=== PATIENT | male | born 1965 | race Caucasian/White ===

== ENCOUNTER 2017-04-04 09:43 | Emergency (ER) | payer OTHER ==
[~2017-04-04] VITALS: Ht 182.9 cm; Wt 90.7 kg
[~2017-04-04 09:43] MED LIST: ANTIVERT 25MG #1 PAC PO; FOLIC ACID 1 MG PO; LEADER NIC14 MG/24 H TOP; MULTIVITAMIN1 TAB PO; NORVASC5 M1 PO; VALIUM2 MG PO; VITAMIN B1100 MG PO; ZOFRAN4 M2 PO
--- NOTE | 2017-04-04 10:43 | ED PSYCHIATRIC COMPLAINT ---
History of Present Illness General Chief Complaint: ETOH/Drug Related Complaint Stated Complaint: DETOX Source: patient Exam Limitations: no limitations Vital Signs & Intake/Output Vital Signs & Intake/Output Vital Signs Date Time Temp Pulse Resp B/P B/P Pulse O2 O2 Flow FiO2 Mean Ox Delivery Rate 04/04 1735 96.7 90 18 122/89 / 1730 96.7 90 18 122/89 96 Room Air 04/04 1623 97.7 90 18 104/76 94 Room Air 04/04 1403 97.6 88 18 124/76 06 1158 96.6 93 18 155/81 04/04 0948 98.0 69 18 124/74 99 Room Air Allergies Coded Allergies: NO KNOWN ALLERGIES (04/20/15) Reconcile Medications Amlodipine Besylate (Norvasc) 5 MG TABLET 1 TAB PO DAILY htn Lorazepam (Ativan) 1 MG TABLET 1 TAB PO TID PRN ALCHOHOL WITHDRAWAL TODAY/TOMORROW: 1 TAB EVERY 6 HOURS DAY 3: 1 EVERY 8 HOURS DAY 4: 1 EVERY 12 HOURS DAY 5: 1 TAB Triage Note: PT TO ED FOR ETOH DETOX, REPORTING LAST DRINK WAS 1/2 PINT OF WHISKEY AT APPROX 8 AM, ENDRORSES DRINKING 1-1.5 PINTS OF CALLY DAILY FOR "ALL MY LIFE" DENIES HX OF DETOX SEIZURES. PT APPEAR INTOXICATED IN TRIAGE. Triage Nurses Notes Reviewed? yes HPI: Patient presents for evaluation of alcoholism. Patient states "I am drunk" with his last alcohol consumption being 7:30 this morning consisting of 3 beers and a pint of whiskey. He states he drinks about 6 beers and 1-1-1/2 pints daily and has been "drinking all" his life. He had one prior detox 2 years ago at different hospital. he denies a history of seizures. Past History Travel History Traveled to [place] past 21 day No Medical History Any Pertinent Medical History? 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 No Review of Systems Review of Systems Constitutional: Reports: no symptoms. EENTM: Reports: no symptoms. Respiratory: Reports: no symptoms. Cardiovascular: Reports: no symptoms. GI: Reports: no symptoms. Genitourinary: Reports: no symptoms. Musculoskeletal: Reports: no symptoms. Skin: Reports: no symptoms. Neurological/Psychological: Reports: no symptoms. Hematologic/Endocrine: Reports: no symptoms. Immunologic/Allergic: Reports: no symptoms. All Other Systems: Reviewed and Negative Physical Exam Physical Exam General Appearance: SEE BELOW Neurological/Psychiatric: SEE BELOW Comments: General: Alert, calm, cooperative, mild EtOH-like odor Head: Normocephalic, atraumatic Eyes: Normal inspection, extinguishing nystagmus with lateral gaze, EOMI Ears: Normal inspection Nose: Normal inspection Throat: Moist mucosa Neck: Supple, no goiter Heart: Regular rate and rhythm, no murmurs rubs or gallops Lungs: Clear to auscultation bilaterally with good air entry Abdomen: Soft nontender nondistended, normal bowel sounds Chest: Nontender Extremities: Normal range of motion grossly, no tremors present, no cyanosis clubbing or edema of the upper extremities Neurologic: cranial nerves II through XII grossly intact, speech clear, gait normal Psychiatric: No apparent delusions or hallucinations, no pressured speech or thought blocking SAD PERSONS Done? patient not suicidal Progress Differential Diagnosis: drug intoxication, drug overdose, drug withdrawal Plan of Care: Orders Procedure Date/time Status Add-on Test (ER Only) 04/04 1232 Active LIPASE 04/04 1109 Complete CIWA 04/04 1048 Active Add-on Test (ER Only) 04/04 1046 Active URINE DRUG SCREEN FOR ER ONLY 04/04 1021 Complete MAGNESIUM 04/04 1021 Complete LITHIUM 04/04 1021 Complete ETHANOL 04/04 1021 Complete COMPREHENSIVE METABOLIC PANEL 04/04 1021 Complete CBC WITHOUT DIFFERENTIAL 04/04 1021 Complete Laboratory Tests 04/04/17 1109: [place] < 0.2 L, Serum Alcohol 251.0 04/04/17 1109: Anion Gap 12, Estimated GFR > 60, BUN/Creatinine Ratio 17.1, Glucose 331 H, Calcium 8.5, Magnesium 1.7, Total Bilirubin 1.1, AST 76 H, ALT 151 H, Alkaline Phosphatase 184 H, Total Protein 6.7, Albumin 3.7, Globulin 3.0, Albumin/ Globulin Ratio 1.2, Lipase 133, CBC w Diff NO MAN DIFF REQ, RBC 4.16 L, MCV 101.8 H, MCH 34.6 H, RDW 13.3, MPV 9.1, Gran % 59.4, Lymphocytes % 30.6, Monocytes % 8.6, Eosinophils % 0.9, Basophils % 0.5, Absolute Granulocytes 5.4, Absolute Lymphocytes 2.8, Absolute Monocytes 0.8 H, Absolute Eosinophils 0.1, Absolute Basophils 0, PUBS MCHC 34.0, Urine Opiates Screen < 100.00, Methadone Screen < 40, Barbiturate Screen < 60, Ur Phencyclidine Scrn < 6.00, Amphetamines Screen < 100, U Benzodiazepines Scrn < 85, Urine Cocaine Screen < 50, Urine Cannabis Screen < 5.00 Comments: 04/04/2017 6:16:11 PM patient appears comfortable with low CIWA scores. He is still somewhat intoxicated and cannot be formally evaluated for inpatient detox for another 2 hours or so. I've explained this to the patient and he is respectfully declined further emergency Department treatment. His on we'll be giving him a ride home and he will seek outpatient detox and counseling. Clinically this patient appears sober and capable of informed medical decision making. Departure Departure Disposition: HOME OR SELF CARE Condition: Stable Clinical Impression Primary Impression: Alcohol intoxication Qualifiers: Complication of substance-induced condition: uncomplicated Qualified Code: F10.920 - Alcohol use, unspecified with intoxication, uncomplicated Secondary Impressions: Alcoholic hepatitis Qualifiers: Ascites presence: without ascites Qualified Code: K70.10 - Alcoholic hepatitis without ascites Referrals: CALIXTO SARMIENTO,FIDELINA (PCP/Family) Additional Instructions: Ativan as prescribed if you remain abstinent from alcohol. Otherwise wean your alcohol use and seek an outpatient detox program as soon as possible. Your primary care doctor of this emergency department visit and treatment plan. Of note, you have elevations in your liver enzymes studies consistent with alcoholic hepatitis. If you've refrain from alcohol intake this will resolve on its own. Return if any concerns or sudden worsening. How to take the Ativan: you will take one tablet every 6 hours for the remainder of today and tomorrow. On third day you will take one tablet every 8 hours, on the fourth day you'll take one tablet every 12 hours and on the final day 1 tablets only. Departure Forms: Customer Survey General Discharge Information Prescriptions: Current Visit Scripts Lorazepam (Ativan) 1 TAB PO TID PRN ALCHOHOL WITHDRAWAL #12 TAB TODAY/TOMORROW: 1 TAB EVERY 6 HOURS DAY 3: 1 EVERY 8 HOURS DAY 4: 1 EVERY 12 HOURS DAY 5: 1 TAB
[2017-04-04 11:18] LABS: ABSOLUTE BASOPHIL COUNT 0 /CUMM (0.0-0.2); ABSOLUTE EOSINOPHIL COUNT 0.1 /CUMM (0.0-0.7); ABSOLUTE GRANULOCYTE CT 5.4 /CUMM (1.4-6.5); ABSOLUTE LYMPH COUNT 2.8 /CUMM (1.2-3.4); ABSOLUTE MONOCYTE COUNT 0.8 /CUMM (0.10-0.60); BASOPHIL % 0.5 % (0.0-2.0); EOSINOPHIL % 0.9 % (0-5); GRANULOCYTE % 59.4 % (42.2-75.2); HEMATOCRIT 42.4 % (42-52); MEAN CORPUSCULAR HGB 34.6 PG (27.0-31.0); MEAN CORPUSCULAR VOLUME 101.8 FL (80.0-94.0); MEAN PLATELET VOLUME 9.1 FL (7.4-10.4); PLATELET COUNT 215 /CUMM (130-400); RBC DISTRIBUTION WIDTH 13.3 % (11.5-14.5); RED BLOOD CELL CT 4.16 /CUMM (4.70-6.10); WHITE BLOOD CELL COUNT 9.1 /CUMM (4.8-10.8)
[2017-04-04 11:51] LABS: LITHIUM < 0.2 mmol/L (0.6-1.2)
[2017-04-04] MEDS ORDERED: ATIVAN1 M1 PO (18:22)
[2017-04-04 18:58] VITALS: BP 135/95
== END 2017-04-04 19:00 ==
LOC: ERH 09:43
PROVIDERS: Emergency Medicine
DX: F10.129 Alcohol abuse with intoxication, unspecified (principal); K70.10 Alcoholic hepatitis without ascites
CPT/HCPCS: 80307; G0480

== ENCOUNTER 2018-03-13 10:26 | Inpatient (IN) | payer OTHER ==
[~2018-03-13] VITALS: Ht 182.9 cm; Wt 108.1 kg
[~2018-03-13 10:26] MED LIST changes: +ATIVAN1 M1 PO; +METFORMIN HCL500 M3 PO
[2018-03-13 11:03] LABS: ABSOLUTE BASOPHIL COUNT 0.1 /CUMM (0.0-0.2); ABSOLUTE EOSINOPHIL COUNT 0.3 /CUMM (0.0-0.7); ABSOLUTE GRANULOCYTE CT 3.6 /CUMM (1.4-6.5); ABSOLUTE LYMPH COUNT 3.3 /CUMM (1.2-3.4); ABSOLUTE MONOCYTE COUNT 0.8 /CUMM (0.10-0.60); BASOPHIL % 0.7 % (0.0-2.0); EOSINOPHIL % 3.4 % (0-5); GRANULOCYTE % 44.9 % (42.2-75.2); MEAN CORPUSCULAR HGB 34.3 PG (27.0-31.0); MEAN CORPUSCULAR HGB CONC 33.3 G/DL (33.0-37.0); MEAN PLATELET VOLUME 8.3 FL (7.4-10.4); PLATELET COUNT 383 /CUMM (130-400); RBC DISTRIBUTION WIDTH 14.1 % (11.5-14.5); RED BLOOD CELL CT 4.47 /CUMM (4.70-6.10); WHITE BLOOD CELL COUNT 8.1 /CUMM (4.8-10.8)
--- NOTE | 2018-03-13 11:09 | ED PSYCHIATRIC COMPLAINT ---
History of Present Illness General Chief Complaint: Psychiatric Related Complaint Stated Complaint: BIBA +SI Source: patient Exam Limitations: poor historian Allergies Coded Allergies: NO KNOWN ALLERGIES (04/20/15) Triage Note: JUAQUIN ON PEER AFTER TEXTING HIS DAUGHTER THAT HE WANTED TO HARM HIMSELF. SHE CALLED 911, AND ON ARRIVAL OF PD AND EMS THEY FOUND A LADDER LEANING AGAINST THE RAFTERS AND PT ADMITTED TO LOOKING FOR A ROPE. DENIES SIGNIFICANT ILLICIT DRUG USE, HX ETOH. ARRIVES CALM, COOPERATIVE AND OPEN TO HELP Triage Nurses Notes Reviewed? yes Onset: Abrupt Duration: unknown duration Timing: recent history HPI: 53-year-old male was brought into the emergency room by police to us ambulance after making suicidal comments to his daughter. Patient was reportedly found with a ladder next to the garage and he was actively looking for a rope to hang himself. He reports that he's been increasingly depressed and is currently in financial debt. He reports that he has and insurance policy and is worth more tender than alive. He does not want to live. He reports that he just wants to leave here so he get about his business he denies any alcohol or drug use. He lives with his aunt. (Soham SLATER,Saeed) Reconcile Medications Atorvastatin Calcium 10 MG TABLET 1 TAB PO DAILY CHOLESTEROL (Reported) Lisinopril 5 MG TABLET 1 TAB PO DAILY HEART (Reported) Metformin HCl 500 MG TABLET 2 TAB PO BID DIABETES (Reported) (Melba SARMIENTO,Elio Mccann) Vital Signs & Intake/Output Vital Signs & Intake/Output Vital Signs Date Time Temp Pulse Resp B/P B/P Pulse O2 O2 Flow FiO2 Mean Ox Delivery Rate 03/15 1552 91 140/93 03/15 1550 91 140/93 03/15 1230 90 141/97 03/15 1158 90 141/97 03/15 0851 84 139/98 03/15 0751 84 139/98 03/15 0750 96.8 84 139/98 03/14 2159 86 154/98 03/14 2013 97.8 98 143/97 03/14 2007 97.8 98 143/97 ED Intake and Output 03/15 0000 03/14 1200 Intake Total Output Total Balance Patient 238 lb Weight (Shivani SARMIENTO,Jensen Elliott) Past History Travel History Traveled to [place] past 21 day No Medical History Any Pertinent Medical History? 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 No (Saeed Darden) Review of Systems Review of Systems Constitutional: Reports: no symptoms. EENTM: Reports: no symptoms. Respiratory: Reports: no symptoms. Cardiovascular: Reports: no symptoms. GI: Reports: no symptoms. Genitourinary: Reports: no symptoms. Musculoskeletal: Reports: no symptoms. Skin: Reports: no symptoms. Neurological/Psychological: Reports: see HPI. Hematologic/Endocrine: Reports: no symptoms. Immunologic/Allergic: Reports: no symptoms. All Other Systems: Reviewed and Negative (Saeed Darden) Physical Exam Physical Exam General Appearance: well developed/nourished, alert, awake Head: atraumatic Eyes: Bilateral: normal appearance. Ears, Nose, Throat: normal ENT inspection, hearing grossly normal Neck: normal inspection Respiratory: no respiratory distress Cardiovascular: regular rate/rhythm Extremities: normal range of motion Neurological/Psychiatric: alert, calm, flat Appearance/Memory/Insight: impaired insight Behavoir/Eye Contact/Speech: cooperative Thoughts/Hallucinations: no apparent hallucination Skin: intact, normal color, warm/dry SAD PERSONS SAD PERSONS Response Value Male Sex? yes 1 Age <19 or >45 years? yes 1 Depression/Hopelessness? yes 2 Rational Thinking Loss? yes 2 Single//? yes 1 Organized/Serious Attempt yes 2 Stated Future Intent? yes 2 Total 11 SAD PERSONS Done? yes (Saeed Darden) Progress Differential Diagnosis: dementia, drug intoxication, drug overdose, drug withdrawal, depression, anxiety, bipolar, Plan of Care: Current Medications Sig/Rishabh Start time Last Medication Dose Stop Time Status Admin Lisinopril 10 MG DAILY 03/15 0900 AC 03/15 (Prinivil) 0851 Lorazepam 1 MG Q4P PRN 03/15 0845 AC (Ativan) Lorazepam 2 MG Q4P PRN 03/15 0845 AC (Ativan) Insulin Aspart 0 TIDAC 03/14 1700 AC (NovoLOG) Metformin HCl 1,000 MG 0800,1700 03/14 1700 AC 03/15 (Glucophage) 1722 Acetaminophen 650 MG Q4P PRN 03/14 1230 AC (Tylenol) Al Hydroxide/Mg 30 ML Q4-6 PRN PRN 03/14 1230 AC Hydroxide (Maalox Plus) Magnesium Hydroxide 30 ML AT BEDTIME PRN 03/14 1230 AC (Milk Of Magnesia) Aspirin Buffered 81 MG DAILY 03/14 1220 AC 03/15 (Ecotrin) 0850 Multivitamins 1 TAB DAILY 03/14 1213 AC 03/15 (Theragran Vitamins) 0851 Folic Acid 1 MG DAILY 03/14 1210 AC 03/15 (Folic Acid) 0850 Thiamine HCl 100 MG DAILY 03/14 1210 AC 03/15 (Vitamin B1) 0850 Atorvastatin Calcium 10 MG DAILY 03/14 0900 AC 03/15 (Lipitor) 0850 Hand-Off Endorsed To: Arnie Robertson MD (Saeed Darden) Hand-Off Endorsed To: Jensen Parrish MD Endorsed Time: 0700 Pending: consult (Melba SARMIENTO,Elio Mccann) Comments: 03/14/2018 7:26:32 AM patient signed out 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 (Shivani SARMIENTO,Jensen Elliott) Departure Departure Condition: Stable Referrals: Purnima SARMIENTO,Jevon Rosado (PCP/Family) Departure Forms: Customer Survey General Discharge Information Comments 03/13/2018 1:17:06 PM I was just made aware by the charge nurse that the patient reportedly eloped from the emergency room through the ambulance bay. Police were notified and are looking for the patient. 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 I have also reviewed all the pertinent lab results and diagnostic results. I agree with the findings and the plan of care as documented in the PA's/HARDWARE ENGINEER's documentation. [x] I have reviewed the ED Record and agree with the PA's/HARDWARE ENGINEER's documentation. [] Additions or exceptions (if any) to the PAs/HARDWARE ENGINEER's note and plan are summarized below: [] (Elio Reilly MD) Departure Clinical Impression Primary Impression: Depression Qualifiers: Depression Type: unspecified Qualified Code: F32.9 - Major depressive disorder, single episode, unspecified Secondary Impressions: Alcohol use disorder Psych Admission Note Psychiatric Admission: I have seen and evaluated CHELSIE SANCHEZ. I have also reviewed all the pertinent lab results and diagnostic results. CHELSIE SANCHEZ will be admitted to our inpatient Psychiatric unit for treatment and care. (Shivani SARMIENTO,Jensen Elliott) [] Additions or exceptions (if any) to the PAs/HARDWARE ENGINEER's note and plan are summarized below: [] (Elio Reilly MD) Departure Clinical Impression Primary Impression: Depression Qualifiers: Depression Type: unspecified Qualified Code: F32.9 - Major depressive disorder, single episode, unspecified Secondary Impressions: Alcohol use disorder Psych Admission Note Psychiatric Admission: I have seen and evaluated CHELSIE SANCHEZ. I have also reviewed all the pertinent lab results and diagnostic results. CHELSIE SANCHEZ will be admitted to our inpatient Psychiatric unit for treatment and care. (Jensen Parrish MD)
[2018-03-13] MEDS ORDERED: LISINOPRIL5 M1 PO (11:47)
[2018-03-13] MEDS ORDERED: ATORVASTATIN CA10 M1 PO (11:47)
[2018-03-13 20:55] VITALS: BP 156/104
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
[2018-03-13 23:02] VITALS: BP 141/80
[2018-03-14] VITALS (14 sets, daily range): BP systolic 136–164; BP diastolic 76–102
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
[2018-03-14] MEDS ORDERED: METFORMIN HCL500 M3 PO (11:50)
--- NOTE | 2018-03-14 16:32 | History & Physical ---
General Information and HPI MD Statement: I have seen and personally examined CHELSIE SANCHEZ and documented this H&P. The patient is a 53 year old M who presented with a patient stated chief complaint of making suicidal statements Source of Information: patient Exam Limitations: no limitations History of Present Illness: 53-year-old male with past medical history significant for diabetes, hypertension, hyperlipidemia, depression who is admitted to Inpatient Psychiatry because his daughter called the police. Patient lives with his daughter and his daughter lives in [place]. He was talking to his daughter over the phone and he says that he was drunk at that time. He made statements that indicated the daughter that he might harm himself. Patient states that currently he has lost his transport/car therefore he's not working. That is making him somewhat depressed and he has been drinking on daily basis. While he was drunk, his daughter called and he made those statements. He currently denies those ideations. He also denies any aches or pains, any urinary complaints, any trouble breathing. He denies taking any medications for psychiatric issues. Allergies/Medications Allergies: Coded Allergies: NO KNOWN ALLERGIES (04/20/15) Home Med list Atorvastatin Calcium 10 MG TABLET 1 TAB PO DAILY CHOLESTEROL (Reported) Lisinopril 5 MG TABLET 1 TAB PO DAILY HEART (Reported) Metformin HCl 500 MG TABLET 2 TAB PO BID DIABETES (Reported) Past History Travel History Traveled to [place] past 21 day No Medical History Neurological: NONE EENT: NONE Cardiovascular: hypertension, hyperlipidemia Respiratory: NONE Gastrointestinal: NONE Hepatic: NONE Renal: NONE Musculoskeletal: NONE Psychiatric: alcohol dependence, depression Endocrine: diabetes Blood Disorders: NONE Cancer(s): NONE DANCE HALL HOSTESS/Reproductive: NONE History of MRSA: No History of VRE: No History of CDIFF: No Isolation History: Standard Surgical History Surgical History: non-contributory Past Family/Social History Family History Relations & Conditions if any Relation not specified for: *No pertinent family history Psychosocial History Where do you live? Home Services at Home: None Review of Systems Review of Systems Constitutional: Reports: see HPI. EENTM: Reports: see HPI. Cardiovascular: Reports: see HPI. Respiratory: Reports: see HPI. GI: Reports: see HPI. Musculoskeletal: Reports: see HPI. Neurological/Psychological: Reports: see HPI. Exam & Diagnostic Data Last 24 Hrs of Vital Signs/I&O Vital Signs Date Time Temp Pulse Resp B/P B/P Pulse O2 O2 Flow FiO2 Mean Ox Delivery Rate 03/14 1622 91 148/102 03/14 1622 91 148/102 03/14 1407 98 147/89 03/14 1222 93 155/93 03/14 1153 67 136/87 03/14 1040 97.5 93 155/93 03/14 1040 97.5 93 155/93 03/14 1027 98 136/80 03/14 1018 98.4 98 16 136/80 95 Room Air 03/14 1000 98.4 98 16 136/80 03/14 0700 98.6 102 16 150/79 03/14 0700 98.6 102 16 150/76 94 Room Air 03/14 0518 98.4 99 18 144/84 03/14 0518 98.4 99 18 144/84 96 Room Air 03/14 0316 97.6 101 16 136/80 03/14 0316 97.6 101 16 136/80 95 Room Air 03/14 0101 96.7 104 16 154/76 03/14 0101 98.1 104 16 154/76 95 Room Air 03/13 2302 98.5 104 18 141/80 03/13 2302 98.5 104 18 141/80 94 Room Air Room Air 03/13 2056 98.7 109 18 156/104 96 Room Air Room Air 03/13 2055 98.7 109 18 156/104 03/13 1914 99.7 115 20 160/100 99 Room Air Intake & Output 03/14 1600 03/14 0800 03/14 0000 Intake Total Output Total Balance Patient 238 lb Weight Physical Exam General Appearance Alert, Oriented X3, Cooperative, No Acute Distress Skin No Rashes HEENT PERRLA Neck Supple Cardiovascular Regular Rate, Normal S1, Normal S2 Lungs Clear to Auscultation Abdomen Normal Bowel Sounds, Soft, No Tenderness Neurological Cranial Nerves II through XII: Intact Extremities No Edema Last 24 Hrs of Labs/Mario: Laboratory Tests 03/14/18 1620: Sodium Pending, Potassium Pending, Chloride Pending, Carbon Dioxide Pending, Anion Gap Pending, BUN Pending, Creatinine Pending, BUN/Creatinine Ratio Pending Laboratory Tests 03/14 03/13 1620 1202 Chemistry Sodium Pending Potassium Pending Chloride Pending Carbon Dioxide Pending Anion Gap Pending BUN Pending Creatinine Pending BUN/Creatinine Ratio Pending Toxicology Urine Opiates Screen (>2000 NG/ML) < 100 Methadone Screen (>300 NG/ML) < 40 Barbiturate Screen (>200 NG/ML) < 60 Ur Phencyclidine Scrn (>25 NG/ML) < 6.00 Amphetamines Screen (>1000 NG/ML) 239 U Benzodiazepines Scrn (>200 NG/ML) < 85 Urine Cocaine Screen (>300 NG/ML) < 50 Urine Cannabis Screen (>50 NG/ML) 20.80 Urines Urine Color (YEL,AMB,STR) YEL Urine Clarity (CLEAR) CLEAR Urine pH (5.0 - 8.0) 5.5 Ur Specific [place] (1.001 - 1.035) >= 1.030 Urine Protein (NEG,<30 MG/DL) NEG Urine Ketones (NEG) NEG Urine Nitrite (NEG) NEG Urine Bilirubin (NEG) NEG Urine Urobilinogen (0.1 - 1.0 EU/dl) 0.2 Ur Leukocyte Esterase (NEG) NEG Ur Microscopic EXAM NOT REQUIRED Urine Hemoglobin (NEG) NEG Urine Glucose (N MG/DL) NEG 03/13 1055 Chemistry Sodium (137 - 145 mmol/L) 150 H Potassium (3.5 - 5.1 mmol/L) 5.0 Chloride (98 - 107 mmol/L) 112 H Carbon Dioxide (22 - 30 mmol/L) 21 L Anion Gap (5 - 16) 17 H BUN (9 - 20 mg/dL) 11 Creatinine (0.7 - 1.2 mg/dL) 0.8 Estimated GFR (>60 ml/min) > 60 BUN/Creatinine Ratio (7 - 25 %) 13.8 Glucose (65 - 99 mg/dL) 143 H Calcium (8.4 - 10.2 mg/dL) 10.2 Total Bilirubin (0.2 - 1.3 mg/dL) 0.2 AST (17 - 59 U/L) 79 H ALT (21 - 72 U/L) 193 H Alkaline Phosphatase (< 127 U/L) 79 Total Protein (6.3 - 8.2 g/dL) 7.8 Albumin (3.5 - 5.0 g/dL) 4.8 Globulin (1.9 - 4.2 gm/dL) 3.0 Albumin/Globulin Ratio (1.1 - 2.2 %) 1.6 Hematology CBC w Diff NO MAN DIFF REQ WBC (4.8 - 10.8 /CUMM) 8.1 RBC (4.70 - 6.10 /CUMM) 4.47 L Hgb (14.0 - 18.0 G/DL) 15.3 Hct (42 - 52 %) 46.0 MCV (80.0 - 94.0 FL) 103.0 H MCH (27.0 - 31.0 PG) 34.3 H MCHC (33.0 - 37.0 G/DL) 33.3 RDW (11.5 - 14.5 %) 14.1 Plt Count (130 - 400 /CUMM) 383 MPV (7.4 - 10.4 FL) 8.3 Gran % (42.2 - 75.2 %) 44.9 Lymphocytes % (20.5 - 51.1 %) 40.9 Monocytes % (1.7 - 9.3 %) 10.1 H Eosinophils % (0 - 5 %) 3.4 Basophils % (0.0 - 2.0 %) 0.7 Absolute Granulocytes (1.4 - 6.5 /CUMM) 3.6 Absolute Lymphocytes (1.2 - 3.4 /CUMM) 3.3 Absolute Monocytes (0.10 - 0.60 /CUMM) 0.8 H Absolute Eosinophils (0.0 - 0.7 /CUMM) 0.3 Absolute Basophils (0.0 - 0.2 /CUMM) 0.1 Toxicology Serum Alcohol (<10 MG/DL) 274.0 Assessment/Plan Assessment: 53-year-old male with past history significant for diabetes, hypertension, hyperlipidemia, depression, alcohol dependence admitted to Inpatient Psychiatry with making some statements which indicated that he could harm himself. For his diabetes patient on metformin. I will add Accu-Cheks and sliding scale insulin. Blood pressure is not under control, I will go up on the dose of his lisinopril. Patient also was hyponatremic on admission. I have ordered repeat lab work. Patient on statin for his hyperlipidemia. Patient has been started on Ativan for history of alcohol dependence. The rest of the psychiatric management will be up to the psychiatrist. As Ranked By This Provider Problem List: 1. Alcohol dependence 2. Diabetes 3. HTN (hypertension) 4. Depression Qualifiers Depression Type: unspecified Qualified Code: F32.9 - Major depressive disorder, single episode, unspecified Miscellaneous Miscellaneous Documentation Attending Case Discussed With: Vangie Bai M.D. Primary Care Physician: Jevon Felton MD Patient sees these Specialists None Level of Patient Care: FREDY Garcia
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
[2018-03-15] VITALS (8 sets, daily range): BP systolic 139–141; BP diastolic 83–98
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
[2018-03-16] VITALS (8 sets, daily range): BP systolic 140–169; BP diastolic 71–90
--- NOTE | 2018-03-16 07:48 | CP SOUTH PROGRESS NOTE PSYCH ---
Psych (Inpt) Progress Note Progress Note Mental Status Examination Ambulation Status: steady gait Appearance: unremarkable Attitude towards examiner: calm and cooperative Psychomotor activity: normal Behavior: no abnormalities Quality of speech: normal Affect: good range of afffect Mood: denied feeling depressed Suicidal Ideation: denied Homicidal Ideation: denied Hallucinations: denied Paranoid/Delusional Material: denied, there were no delusions Difficulties with thought organization: none Insight: partial Judgment: depends on sobriety Orientation: alert and oriented Cognition: no difficulties noted Memory Function: no impairments Estimate of intellectual functioning: average Assets/Strengths Patient Identified Assets/Strengths: intelligent, supportive family Impression/Plan Impression and Plan: 53-year-old male admitted after talking and texting daughter (while intoxicated) and mentioned suicide - Include all active medical diagnosis that require tx DSM 5 Diagnosis(es): unspecified depressive disorder, 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 Factors: will be discharged once free of suicide thoughts x 2 consecutive days
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
--- NOTE | 2018-03-16 17:50 | SOCIAL WORKER PROG NOTE PSYCH ---
Social Work Progress Note Progress Note This automotive service writer met with patient. He identified the reason for admission as "I got incredibly drunk last week." Patient denied SI and stated, "I would never harm myself." Patient stated that he lives with his aunt and would be willing to have a family meeting with her (HOMAR signed). He also signed an HOMAR for his daughter, Darby Moreno. Patient stated that he completed [facility] last year and was attending [facility]. Patient stated that he had been unable to attend the relapse prevention group and AA due to transportation issues. He was informed of [facility], which he was not previously aware of. Patient deneid any other substance use other than alcohol. He denied HI/AH/VH. This automotive service writer spoke with patient's autn, Nichelle Sena ([phone]), by phone regarding the family meeting. This automotive service writer and Jerry Sena will speak tomorrow morning to schedule a meeting as Jerry Sena has appointments in the morning.
[2018-03-17] VITALS (8 sets, daily range): BP systolic 133–142; BP diastolic 72–92
--- NOTE | 2018-03-17 14:48 | SOCIAL WORKER PROG NOTE PSYCH ---
Social Work Progress Note Progress Note CHELSIE SANCHEZ [id number] 1965 CHELSIE SANCHEZ [id number] Pended Authorization # Client Authorization # Type of Request [id number] CONCURRENT Date of Admission/ Start of Services Requested From Submission Date 03/14/2018 03/17/2018 03/17/2018
--- NOTE | 2018-03-17 15:59 | CP SOUTH PROGRESS NOTE PSYCH ---
Psych (Inpt) Progress Note Progress Note Include the following elements, when applicable: Involvement in the active treatment of the patient with behavioral observations of the patient and the patient's response to the treatment. Review of the ongoing treatment process in the context of the treatment plan. Indication of how multi-disciplinary staff members are carrying out the treatment plan. Plans for future interventions and recommendations for revision of the treatment plan. Liaison with other physicians/providers. Progress Note: Case and treatment plan discussed in team meeting. Staff reports that the patient is denying suicidal ideation. Attending groups. Patient seen with medical student at 10:31 AM. Patient was in group prior to meeting with us in office. Affect is calm and euthymic. Patient seems insightful about his relapse and black outs. Agrees to go to [facility]. States he has not found an AA group that he likes. Reports that his car problems and resultant lack of mobility compounds his boredom. Reports mood is good/ optimistic. Rates sad mood and anxiety both 0/10. Denies feeling hopeless, helpless, worthless or guilty. Denies active and passive suicidal ideation. Denies homicidal ideation. Denies auditory and visual hallucinations and paranoid ideation. Describes sleep, appetite and energy as good. Patient is not interested in Antabuse, Campral or ReVia. States he is leery of medications. I attended family meeting with patient, patient's aunt, patient's daughter by phone, and manager social work, Emy Frias. Patient's and family's questions were addressed. Patient is not interested in medication. IMPRESSION: Slow progress. Continue present treatment plan. Anticipate discharge tomorrow to home with referral to [facility].
--- NOTE | 2018-03-17 16:37 | SOCIAL WORKER PROG NOTE PSYCH ---
Social Work Progress Note Progress Note Dr. Hodge and this typewriter operator automatic met with the patient, his aunt (Nichelle) and his daugher , Sadia. Sadia attended the meeting by phone as she lives in [place]. Darby recalled that she has never known her father not to drink alcohol. Regarding her decision to call 911 prior to this admission, she stated, "I've never felt that I've needed to call anyone to check on him." She reported feeling concerned about his safety due to receiving suicidal text messages. Patient is not agreeable to medication or referrals to inpatient rehab programs. Upon Dr. Hodge's departure from the meeting, this typewriter operator automatic discussed discharge plans. Patient was agreeable to returning to [facility], which he had attended in the past. This typewriter operator automatic will provide the patient with the [facility] number in order to avoid future transportation issues and treatment absences. While he refused rehab referrals, he agreed to inform this typewriter operator automatic or whomever his counselor is in the future should he wish to be referred to rehab. Patient's aunt and daughter both denied any current safety concerns and feel comfortable with him discharging to [facility]. Patient is scheduled for an IOP intake with [facility] on 03/18/18 at 11:30am.
[2018-03-18 08:13] VITALS: BP 163/92
[2018-03-18 08:19] VITALS: BP 163/92
[2018-03-18 08:27] VITALS: BP 163/92
[2018-03-18] MEDS ORDERED: ASPIRIN81 M4 PO (10:05)
[2018-03-18] MEDS ORDERED: LISINOPRIL10 M1 PO (10:06)
[2018-03-18] MEDS ORDERED: NICORELIEF2 MG PO (10:06)
[2018-03-18] MEDS ORDERED: ONE DAILY MULT1 EAC2 PO (10:06)
--- NOTE | 2018-03-18 10:13 | Patient Discharge Instructions ---
Psych Discharge Inst General Discharge Information Reason for Admission: While intoxicated, expressed suicidal ideation and reportedly was preparing to hang self. Psy Discharge Primary Diag+ Unspecified depression Psy Discharge Secondary Diag+ Alcohol use disorder Diabetes Hypertension Hyperlipidemia Summary Tests/Major Procedures Lab ALT 193 U/L H 03/13/18 1055 AST 79 U/L H 03/13/18 1055 BUN 14 mg/dL 03/14/18 1620 Calcium 10.2 mg/dL 03/13/18 1055 Carbon Dioxide 27 mmol/L 03/14/18 1620 Chloride 102 mmol/L 03/14/18 1620 Cholesterol 158 MG/DL 03/14/18 1620 Cholesterol/HDL Ratio 4 % 03/14/18 1620 Creatinine 0.7 mg/dL 03/14/18 1620 Estimated GFR > 60 ml/min 03/14/18 1620 Glucose 143 mg/dL H 03/13/18 1055 HDL Cholesterol 36 mg/dL L 03/14/18 1620 LDL Cholesterol, Calc 73 mg/dL 03/14/18 1620 Potassium 4.3 mmol/L 03/14/18 1620 Sodium 141 mmol/L 03/14/18 1620 TSH &T3 &Free T4 Intrp 0.686 uIU/mL 03/14/18 1620 Total Bilirubin 0.2 mg/dL 03/13/18 1055 Triglycerides 248 mg/dL H 03/14/18 1620 Absolute Monocytes 0.8 /CUMM H 03/13/18 1055 Hct 46.0 % 03/13/18 1055 Hgb 15.3 G/DL 03/13/18 1055 MCH 34.3 PG H 03/13/18 1055 MCV 103.0 FL H 03/13/18 1055 Monocytes % 10.1 % H 03/13/18 1055 Plt Count 383 /CUMM 03/13/18 1055 RBC 4.47 /CUMM L 03/13/18 1055 WBC 8.1 /CUMM 03/13/18 1055 Serum Alcohol 274.0 MG/DL 03/13/18 1055 EKG 03/14/18 showed sinus rhythm @ 84, probable inferior infarct, old, no change from prior tracing, abnormal EKG, QT 388, QTc 459. Studies Pending at DC: None. Patient Instructions Contact Information Your Psychiatrist on [facility] was ZiElio stiles MD * If you are experiencing an emergency related to this hospitalization, please call [phone] to contact the treating psychiatrist or the psychiatrist-on- call. * To Request a copy of your medical records, please contact the Medical Records Department at [phone]. * To request results of studies pending at the time of discharge, please call [phone]. * Continue your Medications until directed to stop by your Healthcare provider. General Medication Information Please continue to take your new medications and your continued home medications , unless otherwise indicated on your discharge medication list, or unless directed by your MD or MOBILE PET GROOMER to stop them. Special Instructions Diet Diabetic Activity Normal Other Inst/Recommendations Stay clean&sober! See PCP about medical condx's, labs, EKG. - Tobacco Use Treatment Offered Post DC Medications Offered: Script Given-See Med List Post DC Tobacco Treatment Plan: [facility] Tobacco Tx P[facility] Program Appt Date: 03/18/18 Program Appt Time: 1600 - EtOH/Drug Use D/O Treatment Offered Post DC Medications Offered: Ref Med EtOH/Drug Use D/O Post DC EtOH/SubAbuse TX Plan: [facility] SubAbuse/Dual IOP Program Appt Date: 03/18/18 Program Appt Time: 1130 Metabolic Screening ([x]) Not Applicable, patient not on a neuroleptic. OR () Patient on a neuroleptic(s) . Enter below results for Hemoglobin A1C, and lipid panel if obtained during the last 365 days. BMI: 32.300 Blood Pressure: 163/92 Laboratory Results From [facility] EHR (If applicable): Advance Directives Does the Patient have Medical Advance Directives No/Refused further info Does Pt have Psychiatric Advance Directives? No/Refused further info Does Patient have a Designated Surrogate Decision Maker: No Information About Psychiatric Advance Directives Provided? Refused Discharge Plan Post Hospital Treatment Plan: Returning to home. Lives with aunt.
--- NOTE | 2018-03-18 14:21 | SOCIAL WORKER PROG NOTE PSYCH ---
Social Work Progress Note Progress Note This grant writer met with patient. He reported a "good" mood and denied SI/HI/AH/VH. Patient reported feeling ready for discharge today and accepted the [facility] intake appointment scheduled for today at 11:30am. Patient stated that a friend will provide transportation home following the intake. Patient stated that he also plans to return to and attend 90 meetings in 90 days. He identified a safety plan in which he would "call someone - my daughter, my sister." He was also accepting of the crisis numbers and warm line numbers. Patient was provided with the [facility] number and stated that he would call them to schedule a ride once he is provided with his IOP schedule. In addition, he stated that he would ask a friend for transportation if he is scheduled to start IOP prior to being able to schedule the [facility] ride. A message was relayed to Jaz Pimentel at [facility] regarding patient's plan to utilize [facility]. Faxed Referral(s) Referred To: [facility] Transition of Care Documents sent: Health Summary Faxed to: [facility] Fax #: [phone] Faxed by: Carmelita Frias LCSW Date faxed: 03/18/18 Time Faxed: [phone]
--- NOTE | 2018-03-18 17:31 | CP SOUTH PROGRESS NOTE PSYCH ---
Psych (Inpt) Progress Note Progress Note Include the following elements, when applicable: Involvement in the active treatment of the patient with behavioral observations of the patient and the patient's response to the treatment. Review of the ongoing treatment process in the context of the treatment plan. Indication of how multi-disciplinary staff members are carrying out the treatment plan. Plans for future interventions and recommendations for revision of the treatment plan. Liaison with other physicians/providers. Progress Note: Case and treatment plan discussed in team meeting. Staff reports that the patient is denying suicidal ideation. Seems fine. Has IOP intake at 11:30 AM. Patient seen at 9:57 AM. Reports he feels pretty good. Has no complaints. Not interested in medication. Affect is calm and blunted to euthymic. Mood is good. Rates sad mood and anxiety both 0/10. Denies feeling hopeless, helpless, worthless or guilty. Denies active and passive suicidal ideation. Denies homicidal ideation. Denies auditory and visual hallucinations and paranoid ideation. Describes sleep, appetite and energy as good. Tolerating medications well, without complaint. Feels ready and safe for discharge. Patient was advised to remain clean and sober. IMPRESSION: Condition improved. Okay for discharge today to IOP intake, then to home and aunt.
--- NOTE | 2018-03-18 17:38 | DISCHARGE SUMMARY REPORT-PSYCH ---
Visit Information Visit Dates/Diagnosis' Admission Date: 03/14/18 Discharge Date: 03/18/18 Reason for Admission: While intoxicated, expressed suicidal ideation and reportedly was preparing to hang self. Psy Discharge Primary Diag: Unspecified depression Psy Discharge Secondary Diag: Alcohol use disorder Diabetes Hypertension Hyperlipidemia Hospital Course Significant Lab Findings: Lab ALT 193 U/L H 03/13/18 1055 AST 79 U/L H 03/13/18 1055 BUN 14 mg/dL 03/14/18 1620 Calcium 10.2 mg/dL 03/13/18 1055 Carbon Dioxide 27 mmol/L 03/14/18 1620 Chloride 102 mmol/L 03/14/18 1620 Cholesterol 158 MG/DL 03/14/18 1620 Cholesterol/HDL Ratio 4 % 03/14/18 1620 Creatinine 0.7 mg/dL 03/14/18 1620 Estimated GFR > 60 ml/min 03/14/18 1620 Glucose 143 mg/dL H 03/13/18 1055 HDL Cholesterol 36 mg/dL L 03/14/18 1620 LDL Cholesterol, Calc 73 mg/dL 03/14/18 1620 Potassium 4.3 mmol/L 03/14/18 1620 Sodium 141 mmol/L 03/14/18 1620 TSH &T3 &Free T4 Intrp 0.686 uIU/mL 03/14/18 1620 Total Bilirubin 0.2 mg/dL 03/13/18 1055 Triglycerides 248 mg/dL H 03/14/18 1620 Absolute Monocytes 0.8 /CUMM H 03/13/18 1055 Hct 46.0 % 03/13/18 1055 Hgb 15.3 G/DL 03/13/18 1055 MCH 34.3 PG H 03/13/18 1055 MCV 103.0 FL H 03/13/18 1055 Monocytes % 10.1 % H 03/13/18 1055 Plt Count 383 /CUMM 03/13/18 1055 RBC 4.47 /CUMM L 03/13/18 1055 WBC 8.1 /CUMM 03/13/18 1055 Serum Alcohol 274.0 MG/DL 03/13/18 1055 EKG 03/14/18 showed sinus rhythm @ 84, probable inferior infarct, old, no change from prior tracing, abnormal EKG, QT 388, QTc 459. At time of discharge, patient was provided with copy of EKG. Course Complications: None. Consultations: The patient was seen by Dr. Alaniz for admission H&P. Per her note of 03/14/18: "53-year-old male with past history significant for diabetes, hypertension, hyperlipidemia, depression, alcohol dependence admitted to Inpatient Psychiatry with making some statements which indicated that he could harm himself. For his diabetes patient on metformin. I will add Accu-Cheks and sliding scale insulin. Blood pressure is not under control, I will go up on the dose of his lisinopril. Patient also was hyponatremic [sic] on admission. I have ordered repeat lab work. Patient on statin for his hyperlipidemia. Patient has been started on Ativan for history of alcohol dependence. The rest of the psychiatric management will be up to the psychiatrist." CORRECTION: The patient was HYPERnatremia on admission but this corrected (JACKIE). Allergies: Coded Allergies: NO KNOWN ALLERGIES (04/20/15) Hospital Course/TX Response: The patient was monitored on the unit for safety, alcohol withdrawal and mood disorder. He participated in multi-modal treatments on the unit. An anti- depressant was not indicated. The patient was offered a choice of Antabuse, Campral or Revia, and he was not interested in any of these. Mood and affect have improved. Detox was uncomplicated. Suicidal ideation has remitted. Progress note from date of discharge, 03/18/18: "Case and treatment plan discussed in team meeting. Staff reports that the patient is denying suicidal ideation. Seems fine. Has IOP intake at 11:30 AM. Patient seen at 9:57 AM. Reports he feels pretty good. Has no complaints. Not interested in medication. Affect is calm and blunted to euthymic. Mood is good. Rates sad mood and anxiety both 0/10. Denies feeling hopeless, helpless, worthless or guilty. Denies active and passive suicidal ideation. Denies homicidal ideation. Denies auditory and visual hallucinations and paranoid ideation. Describes sleep, appetite and energy as good. Tolerating medications well, without complaint. Feels ready and safe for discharge. Patient was advised to remain clean and sober. IMPRESSION: Condition improved. Okay for discharge today to IOP intake, then to home and aunt." Discharge HBIPS - Tobacco Use Treatment Offered Post DC Medications Offered: Script Given-See Med List Post DC Tobacco Treatment Plan: [facility] Program Appt Date: 03/18/18 Program Appt Time: 1600 - EtOH/Drug Use D/O Treatment Offered Post DC Medications Offered: Ref Med EtOH/Drug Use D/O Post DC EtOH/SubAbuse TX Plan: [facility] SubAbuse/Dual IOP Program Appt Date: 03/18/18 Program Appt Time: 1130 Metabolic Screening - Screen if on a Neuroleptic Medication - Metabolic screening should include: - Blood Pressure, BMI, Glucose or Hgb A1c, & a - Lipid profile from within the past 365 days. Metabolic Screening ([x]) Not Applicable, patient not on a neuroleptic. OR () Patient on a neuroleptic(s) . Enter below results for Hemoglobin A1C, and lipid panel if obtained during the last 365 days. BMI: 32.300 Blood Pressure: 163/92 Laboratory Results From [facility] EHR (If applicable): Discharge Instructions General Discharge Information Multiple Neuroleptics: ([s]) Not Applicable OR Document below three failed attempts at monotherapy, or a plan to taper to monotherapy, or augmentation of Clozapine. () Discharge Diet Diabetic Discharge Activity Normal DC Disposition: Returning to home and aunt. Referrals Ordered Referrals Provider Referral 03/18/18 For Providers: [[facility]] For Groups: [Intensive Outpatient] [facility] [address] [place], [place] [phone] Intake: 03/18/18, at 11:30am [place] (medical cab transportation): [phone] Provider Referral 03/18/18 For Providers: [[facility]] For Groups: [Smoking Cessation Group] Smoking Cessation Group [facility] [address] [place], [place] [phone] Group meets every other Friday at 4pm Next Group: 03/18/18 at 4pm Prescriptions Stop taking the following medications: Lisinopril (Lisinopril) 5 MG TABLET ORAL DAILY Qty = 90 Continue taking these medications: Atorvastatin Calcium (Atorvastatin Calcium) 10 MG TABLET 1 Tablet ORAL DAILY Qty = 30 Comments: Last Taken:03/18/18 Time:8:30AM Metformin HCl (Metformin HCl) 500 MG TABLET 2 Tablet ORAL TWICE DAILY Comments: Last Taken:03/18/18 Time:8:30AM Aspirin (Aspirin*) 81 MG TAB.CHEW 1 Tablet ORAL DAILY Comments: Last Taken:03/18/18 Time:8:30AM Start taking the following new medications: Nicotine (Nicorelief) 2 MG GUM 1 Gum ORAL EVERY 2 HOURS NEEDED as needed for nicotine craving Qty = 100 No Refills Comments: Last Taken:NOT USED IN THE HOSPITAL Time: Lisinopril (Lisinopril) 10 MG TABLET 1 Tablet ORAL DAILY Qty = 14 No Refills Comments: Last Taken:03/18/18 Time:8:30AM Multivitamin (One Daily Multivitamin) 1 EACH TABLET 1 Tablet ORAL DAILY Qty = 14 No Refills Comments: Last Taken:03/18/18 Time:8:30AM Other Inst/Recommendations Stay clean&sober! See PCP about medical condx's, labs, EKG. Studies Pending at Discharge None. Copies To: Intensive Outpt Psychiatry
--- NOTE | 2018-03-18 18:08 | SOCIAL WORKER PROG NOTE PSYCH ---
Social Work Progress Note Faxed Referral(s) Referred To: [facility] Transition of Care Documents sent: Transfer Faxed to: [facility] Fax #: [phone] Faxed by: thee coffman lcsw Date faxed: 03/18/18 Time Faxed: [phone]
== END 2018-03-18 11:25 | DRG 754 ==
LOC: ERH 10:26 → ERHI 03-14 09:48 → CP SOUTH 03-14 09:48 → ENTRNSPT 03-14 10:22 → EDTRNSPTSTS 03-14 10:23 → EDTRNSPT 03-14 10:23 → CP SOUTH 03-14 10:33 → CMPTRNSPT 03-14 11:07 → CP SOUTH 03-17 20:44
PROVIDERS: Hospitalist; Physician Assistant Medical
DX: F32.9 Major depressive disorder, single episode, unspecified (principal); F10.10 Alcohol abuse, uncomplicated; E11.8 Type 2 diabetes mellitus with unspecified complications; I10 Essential (primary) hypertension; E78.5 Hyperlipidemia, unspecified
CPT/HCPCS: 80307; 81003; 82436; 93005; 93010; G0463; G0480; J0515; J1630; J3490